=== PATIENT | male | born 1960 | race Caucasian/White ===

== ENCOUNTER → 2024-02-12 06:17 | Day surgery (SDC) | payer OTHER, SELFPAY | LOC: GI 06:17 | PROVIDERS: ATTENDING PHYSICIAN Specialist | DX: Z12.11 Encounter for screening for malignant neoplasm of colon (principal); R19.5 Other fecal abnormalities; K57.30 Diverticulosis of large intestine without perforation or abscess without bleeding; D12.3 Benign neoplasm of transverse colon; D12.5 Benign neoplasm of sigmoid colon; K63.5 Polyp of colon | CPT/HCPCS: 45385; 45381; 45380; 88305 ==

== ENCOUNTER 2024-06-16 20:05 | Observation (INO) | payer OTHER, SELFPAY ==
[2024-06-16 11:33] VITALS: BP 146/80
[2024-06-16 14:51] VITALS: BP 148/87
--- NOTE | 2024-06-16 14:51 | ED.GENMED ---
History of Present Illness
General
Chief Complaint: Visual Problem
Time Seen by Provider: 06/16/24 13:45
History of Present Illness
History of Present Illness:
Patient presents emergency department with diplopia. Symptoms started last night. Notes that he has had intermittent episodes of this over the past few weeks. However symptoms got much worse last night. Denies any headache or neck pain. Denies
any numbness weakness or tingling. Double vision is resolved when he covers one of his eyes.
Phy Exam
Physical Exam
Physical Exam:
GENERAL APPEARANCE: NAD, well developed/ well nourished
EYES lids/conjunctiva normal
EARS/NOSE/THROAT Mucous membranes moist, uvula midline without oral pharyngeal erythema, exudate or swelling
HEAD/NECK normocephalic atraumatic, neck is supple.
RESPIRATORY respiratory effort normal, speaks in full sentences, no accessory muscle use. Lungs clear to auscultation without rhonchi, wheezes, rales
CARDIAC Regular rate and rhythm, no edema.
ABDOMINAL Soft, ND/NT. No pulsatile masses on exam, rebound tenderness, Blount sign or pain over Mcburney's point.
MUSCLES/EXTREMITIES No abnormal range of motion, no swelling.
SKIN Warm, pink and dry. No rashes
NEUROLOGICAL Speech is clear and appropriate. Extraocular muscles are intact however there is disconjugate gaze and eyes are not moving and coordination. Mild right ptosis which patient states is chronic. Cranial nerves II through XII otherwise
intact. Normal level of consciousness. 5/5 strength in all extremities. Sensation intact to light touch throughout. No ataxia or dysmetria
PSYCH Normal mood and affect. Judgement/competence is appropriate
Course
Orders/Labs/Results
Orders:
Orders
06/16/24 11:41
CT Head W/o Iv Contrast Urgent
Comment:
Reason For Exam: visual changes since last night
06/16/24 14:38
Electrocardiogram (*1) Stat
Reason for Study: Other
Other Reason for Exam: neuro symptoms
CT Head & Neck Angio W/wo IV Urgent
Comment:
Reason For Exam: binocular diplopia
Aspirin Chewable [Low Strength Aspirin] 324 mg PO NOW STA
06/16/24 14:39
Nicotine [Nicoderm Transdermal] 21 mg TRANSDERM DAILY ONE
06/16/24 14:45
Complete Blood Count/With Diff Urgent
Comprehensive Metabolic Panel Urgent
Erythrocyte Sed Rate Urgent
06/16/24 19:50
Admit/Transfer Patient As Directed
Co-Sign Provider:
Level of Care: Observation services
Assign to:: Telemetry
Physician / Group: kevin
Diagnosis: cranial gallo palsy
Reason for Telemetry: Arrhythmia
Date to Stop Telemetry: 06/19/24
Time to Stop Telemetry: 11:00
Code Status As Directed
Resuscitation Status: Full Code
PRN Pain Medication Management As Directed
May give lesser potent ordered pain med per pt: Yes
preference::
Protocol:: Medication orders for pain may be administered in a
manner that supports deferring to patient preference
when the pt is:
- Requesting an ordered lesser potent pain medication.
Least to most potent pain medications are defined
as: acetaminophen < NSAID < tramadol < opioids
(morphine, oxycodone, hydromorphone).
- Requesting a lesser dose of the same medication IF
ORDERED.
- Requesting a less intrusive route of administration
if both routes are prescribed by the provider (PO <
IV).
06/19/24 11:00
DC Protocol for Telemetry ONCE
06/16/24 14:45
06/16/24 14:45
Vital Signs
Initial and Last Documented VS:
Initial Vital Signs
Temp Pulse Resp BP Pulse Ox
98.2 F 74 16 146/80 96
06/16/24 11:33 06/16/24 11:33 06/16/24 11:33 06/16/24 11:33 06/16/24 11:33
Last Documented Vital Signs
Temp Pulse Resp BP Pulse Ox
98.2 F 74 18 155/84 99
06/16/24 11:33 06/16/24 19:34 06/16/24 19:34 06/16/24 19:34 06/16/24 19:34
*Critical Care Note
Total Time (30-74mins, 75-104mins- exclusive of procedures): Not Applicable
ED Attending Note
ED Attending Note
ED Attending Note:
Patient with binocular diplopia. His extraocular movements appear to be intact and if this peers to be more complex motility disorder with his eyes. Will CTA head and plan for admission to rule out CVA or other [employer] causes
-
Portions of this chart may have been created with voice recognition software.� Occasional wrong word or��sound alike� substitutions may have occurred due to the inherent limitations of voice recognition software.
Discharge Plan
Departure
Patient Disposition: Admit
Date of Disposition: 06/16/24
Time of Disposition: 19:30
Presentation/result/management discussed w/ accepting MD/DO: Hospitalist
Discharge Problem:
Binocular vision disorder with diplopia
Interventions
Interventions:
*Risk Screen - Suicide Last Done: 06/16/24 11:33
*General Assessment Last Done: 06/16/24 11:33
*Neglect/Abuse Screening Last Done: 06/16/24 11:33
ED- Fall Risk Assessment Last Done: 06/16/24 18:18
*ED COVID-19 Vaccine History Last Done: 06/16/24 11:33
ED- Neurological Assessment Last Done: 06/16/24 18:18
ED-EENT Assessment Last Done: 06/16/24 18:18
ED Swallowing Screen Last Done: 06/16/24 18:18
[2024-06-16] MEDS: LOW STRENGTH ASPIRIN 324 MG PO (14:59)
[2024-06-16] MEDS: NICODERM TRANSDERMAL 21 MG TRANSDERM (14:59)
[2024-06-16 15:13] LABS: % Basophils 0.7 % (0-2); % Eosinophils 2.2 % (0-6); % Immature Granulocytes 0.2 % (0-0.5); % Lymphocytes 32.8 % (20.5-51.1); % Monocytes 6.8 % (1.7-9.3); % Neutrophils 57.3 % (42.2-75.2); Absolute Basophils 0.1 10^3/uL (0-0.2); Absolute Eosinophils 0.2 10^3/uL (0-0.7); Absolute Lymphocytes 2.7 10^3/uL (1.2-3.4); Absolute Monocytes 0.6 10^3/uL (0.1-0.6); Absolute Neutrophils 4.7 10^3/uL (1.4-6.5); Hematocrit 46.7 % (39.0-52.0); Hemoglobin 15.8 g/dL (13.0-18.0); Mean Corp Hgb Conc. 33.8 g/dL (33.0-37.0); Mean Corpuscular Hgb 30.3 pg (27.0-31.0); Mean Corpuscular Volume 89.5 fL (80.0-94.0); Mean Platelet Volume 10.1 fL (7.4-10.4); Nucleated Red Blood Cells % 0 % (-); Platelet Count 246 10^3/uL (130-400); Red Blood Cell Count 5.22 10^6/uL (4.70-6.10); Red Cell Dist. Width 13.2 % (11.5-14.5); White Blood Cell Count 8.1 10^3/uL (4.8-10.8)
[2024-06-16 15:27] LABS: ALT (SGPT) 26 U/L (0-50); AST (SGOT) 22 U/L (17-59); Albumin 4.2 g/dl (3.5-5.0); Alkaline Phosphatase 89 U/L (38-126); Blood Urea Nitrogen 13 mg/dl (9-20); Carbon Dioxide 30 mmol/L (22-30); Chloride 102 mmol/L (98-107); Glucose 86 mg/dl (70-99); Potassium 4.4 mmol/L (3.5-5.1); Sodium 139 mmol/L (135-145); Total Bilirubin 0.3 mg/dl (0.2-1.3); Total Protein 6.9 g/dl (6.3-8.2); eGFR > 60.00
[2024-06-16 15:37] LABS: Erythrocyte Sed Rate 9 mm/hour (0-20)
[2024-06-16 19:34] VITALS: BP 155/84
--- NOTE | 2024-06-16 19:53 | HPS.HSE ---
Family Physician
-
Family Physician: NOT KNOW UNKNOWN - PT DOES
Chief Complaint
-
double vision
History of Present Illness
64-year-old male past medical history of tobacco use, skull fracture in 2012, hyperlipidemia, bullous pemphigoid, cough variant asthma, presenting with double vision. Symptoms are last night. Patient has had intermittent episodes of this over the
past few weeks was much worse last night. Patient denies headache or neck pain. Denies numbness or weakness or tingling. Double vision is resolved when he covers one of his eyes. Denies headache, eye pain, numbness or tingling, focal weakness.
He is having some balance dysfunction due to double vision.
He smokes half pack of cigarettes per day. Denies alcohol use.
His mother had TIAs.
Medical History
Past Medical History
Past Medical History: Reports Other (tobacco use, skull fracture in 2012, hyperlipidemia, bullous pemphigoid, cough variant asthma,)
Past Surgical History: Reports Other (foot surgery)
Social History
Tobacco: Non-smoker
Alcohol: None
Drug: None
Family History
Family History: Not pertinent
Allergies / Home Medications
Allergies reflects when Allergies were last updated in [facility].
Home Medications with original date entered in [facility]
Allergy/Medication List:
Allergies
Allergy/AdvReac Type Severity Reaction Status Date / Time
'antibiotics' Allergy Unknown Uncoded 06/16/24 11:38
Home Medications
No Meds [No Current Medications] 06/16/24
Review of Systems
-
History Source: Patient
A 12 point ROS was completed and negative except as noted: Yes
Constitutional: Reports No Symptoms
EENT: Reports See HPI
Respiratory: Reports No Symptoms
Cardiac: Reports No Symptoms
Abdomen/GI: Reports No Symptoms
: Reports No Symptoms
Musculoskeletal: Reports No Symptoms
Skin: Reports No Symptoms
Neurological: Reports No Symptoms
Endocrine: Reports No Symptoms
Hematologic/Lymphatic: Reports No Symptoms
Psych: Reports No Symptoms
Physical Exam
Vital Signs
Vital Signs
Temp Pulse Resp BP Pulse Ox
98.2 F 74 18 155/84 99
06/16/24 11:33 06/16/24 19:34 06/16/24 19:34 06/16/24 19:34 06/16/24 19:34
Physical Exam
General: Well Developed, Well Nourished and No Apparent Distress
HEENT: NormoCephalic, Moist mucous membranes and Atraumatic
Respiratory: Clear
Cardiac: S1/S2 and Regular Rhythm; No Murmur or Rub
GI: Soft, Non Tender, Non Distended and Normal Bowel Sounds; No Organomegaly
Rectal: Deferred by Provider
Musculoskeletal: No Clubbing, No Cyanosis and No Edema
Skin: No Rash
Neuro: Nonfocal/grossly intact and Other (laterally deviated left eye )
Laboratory Results
-
06/16/24 14:45
06/16/24 14:45
Laboratory Results
Total Bilirubin 0.3 mg/dl (0.2-1.3) 06/16/24 14:45
AST 22 U/L (17-59) 06/16/24 14:45
ALT 26 U/L (0-50) 06/16/24 14:45
Alkaline Phosphatase 89 U/L (38-126) 06/16/24 14:45
Data Reviewed
-
Lab Data: Labs Reviewed by me
Old Records: Reviewed
Impression/Plan
-
IMPRESSION:
PLAN:
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
-Difficult to examine, but seems like patient has lateral deviation of left eye
-CT head shows no acute intracranial abnormality
-CTA head and neck shows no evidence of intracranial aneurysm, no significant atherosclerotic disease,
-Check MRI brain
-Eyepatch
-Neurology consulted
-Outpatient follow-up with ophthalmology
History of tobacco
Skull fracture in 2012
Bullous pemphigoid
Cough variant asthma
-Takes Trelegy
Smoker
Hyperlipidemia
Full code
DVT prophylaxis�SCDs
Regular diet
[2024-06-16 22:28] VITALS: BMI 29.3
[2024-06-16] MEDS: FLUSH (NSS) 1 FLUSH IV (22:28)
--- NOTE | 2024-06-16 23:00 | PTCARENOTE ---
Pt arrived on unit from ED via stretcher. Pt ambulated to bed in room. A&Ox3. Pt placed on tele monitor #[id number] in NSR. Pt oriented to unit. Call light within reach. Care ongoing.
[2024-06-16 23:02] VITALS: BMI 29.2
[2024-06-16 23:14] VITALS: BP 129/72
[2024-06-17 03:00] VITALS: BP 128/65
[2024-06-17 06:54] LABS: % Basophils 0.7 % (0-2); % Immature Granulocytes 0.3 % (0-0.5); % Lymphocytes 28.6 % (20.5-51.1); % Monocytes 5.6 % (1.7-9.3); % Neutrophils 62.8 % (42.2-75.2); Absolute Basophils 0.1 10^3/uL (0-0.2); Absolute Eosinophils 0.2 10^3/uL (0-0.7); Absolute Lymphocytes 2.6 10^3/uL (1.2-3.4); Absolute Monocytes 0.5 10^3/uL (0.1-0.6); Absolute Neutrophils 5.8 10^3/uL (1.4-6.5); Hemoglobin 16.8 g/dL (13.0-18.0); Mean Corpuscular Hgb 30.9 pg (27.0-31.0); Mean Corpuscular Volume 88.4 fL (80.0-94.0); Mean Platelet Volume 10.1 fL (7.4-10.4); Nucleated Red Blood Cells % 0 % (-); Platelet Count 240 10^3/uL (130-400); Red Blood Cell Count 5.43 10^6/uL (4.70-6.10); Red Cell Dist. Width 13.3 % (11.5-14.5); White Blood Cell Count 9.2 10^3/uL (4.8-10.8)
--- NOTE | 2024-06-17 07:02 | W.PN.HOSP.TC ---
Today's Communication/Plan
-
Discharge today
Assessment / Plan
Assessment / Plan
Physical Exam
General: Not in acute distress
HEENT: Normocephalic
Respiratory: Clear to Auscultation Bilaterally
Cardiac: S1/S2 and Regular Rhythm
GI: Soft, Non Tender, Non Distended and Normal Bowel Sounds
Musculoskeletal: No Cyanosis and No Edema
Skin: Warm. Dry.
Neuro: AAOx3. PERRL and EOMI. Remaining cranial nerves intact except binocular diplopia bilaterally and lateral visual field limitations. Strength and sensation grossly intact bilaterally in the upper and lower extremities.
Assessment/Plan
64-year-old male past medical history of tobacco use, skull fracture in 2012, hyperlipidemia, bullous pemphigoid, cough variant asthma, presented with double vision since 06/15/24. He denied numbness, weakness or tingling. Double vision resolves
when he covers one of his eyes. Denies headache, eye pain, numbness or tingling, focal weakness. He is having some balance dysfunction due to double vision. He smokes half pack of cigarettes per day. Denies alcohol use. His mother had TIAs.
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
-I discussed case with on-call neurosurgeon (Dr. Shannon) who said inpatient neurosurgery consult is not needed, and based on patient's symptoms and MRI findings, he can be discharged and be seen outpatient by
neurosurgery
-I also discussed case with pulp cooker Dr. Campuzano who said patient can follow-up outpatient with her
-FSH, LH, Prolactin and TSH are all normal
-Eyepatch
-Neurology consulted
History of tobacco
Skull fracture in 2012
Bullous pemphigoid
Cough variant asthma
-Takes Trelegy
Smoker
Hyperlipidemia
Full code
DVT prophylaxis�SCDs
Regular diet
I spoke extensively with patient and his today, they are both in agreement with patient being discharged from the hospital and doing outpatient follow-up.
More than 30 minutes spent in discharge including
Final examination of the patient
Summarizing hospital stay
Instructions for continuing care to all relevant caregivers
Preparation of discharge records, prescriptions, and referral forms
Total time spent (in minutes): 40
Anticipated Discharge: Today
Subjective/Interval History
-
Date of Service: June 17, 2024
Patient was seen and examined. He reported double vision is better with the eye patch, but it is still there when he takes off the eye patch.
Objective Data
-
Labs:
Laboratory Results
06/17/24
06:30
WBC 9.2
Hgb 16.8
Hct 48.0
Plt Count 240
Sodium Pending
Potassium Pending
Chloride Pending
Carbon Dioxide Pending
BUN Pending
Creatinine Pending
Glucose Pending
Calcium Pending
Total Bilirubin Pending
AST Pending
ALT Pending
Alkaline Phosphatase Pending
Vital Signs:
Vital Signs
Temp Pulse Resp BP Pulse Ox
99.1 F 67 16 128/65 96
06/17/24 03:00 06/17/24 03:00 06/17/24 03:00 06/17/24 03:00 06/17/24 03:00
I&O
06/16/24 06/17/24 06/18/24
06:59 06:59 06:59
Intake Total 600 / 600
Balance 600 / 600
[2024-06-17 07:14] LABS: ALT (SGPT) 28 U/L (0-50); AST (SGOT) 24 U/L (17-59); Albumin 4.3 g/dl (3.5-5.0); Alkaline Phosphatase 103 U/L (38-126); Blood Urea Nitrogen 16 mg/dl (9-20); Calcium 9.8 mg/dl (8.4-10.2); Carbon Dioxide 28 mmol/L (22-30); Chloride 103 mmol/L (98-107); Estimated Creatinine Clearance 79 ml/min; Glucose 104 mg/dl (70-99); Potassium 4.6 mmol/L (3.5-5.1); Sodium 139 mmol/L (135-145); Total Bilirubin 0.4 mg/dl (0.2-1.3); Total Protein 7.2 g/dl (6.3-8.2); eGFR > 60.00
[2024-06-17 07:40] VITALS: BP 127/74
--- NOTE | 2024-06-17 11:01 | CON.NEURO ---
Consultation
Order
Date of Consultation: 06/17/24
Requesting Provider: Rafael Mckenna MD
Reason for Consult: Diplopia
Neurology Consultation Note.
HPI: This is a 64-year-old man who presented to [facility] on 06/16/2024 with visual changes. According to the patient he developed intermittent painless binocular horizontal diplopia around 1 and half months ago. No reports of eye
trauma, headaches, eye trauma, fever, motor, sensory changes.
ER VS: 146/80, 74, afebrile.
EKG: NSR, QTc Int : 388 ms
PDMP:none
Labs: Glucose�104, normal platelets, hematocrit
Brain MRI w/wo vandana(06/17/2024)� 1.0 x 0.8 x 0.6 cm hypoenhancing focus within the left aspect of the pituitary with associated mild rightward shift of the pituitary stalk which is favored to represent a pituitary macroadenoma. This appears to abut
the left cavernous ICA
CTA head/neck-no hemodynamically significant stenosis
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
PSH: Right foot ORIF
SH: Active smoker
FH: Mother�TIAs
All:PNC
ROS: Constitutional: Negative. Negative for chills, fever and unexpected weight change.
HENT: Negative for ear pain, hearing loss, tinnitus and trouble swallowing.
Eyes: Positive for diplopia
Respiratory: Negative for cough, choking and shortness of breath.
Cardiovascular: Negative for chest pain, palpitations and leg swelling.
Gastrointestinal: Negative for abdominal pain and vomiting.
Endocrine: Negative. Negative for cold intolerance.
Genitourinary: Negative for dysuria, flank pain and urgency.
Musculoskeletal: Negative for back pain, gait problem, neck pain and neck stiffness.
Skin: Negative for rash.
Allergic/Immunologic: Negative. Negative for immunocompromised state.
Neurological:positive for diplopia
Psychiatric/Behavioral: Negative for behavioral problems, confusion and hallucinations.
General: Well developed. In no acute distress.
Cardio: Regular rate and rhythm without murmur. Extremities are without cyanosis or edema.
Neuro:
Mental Status: Alert, oriented to person, place, month, year. Date was not correct but close. Normal attention and recall. Good fund of knowledge. Follows complex requests across the midline. Comprehension, naming, and repetition intact.
Cranial Nerves: Pupils are equally round and reactive to light. EOMs full. Visual pedraza full to confrontation. Binocular diplopia at distance bilaterally. Lateral visual field limitations. V1-V3 intact to light touch and pinprick bilaterally,
symmetric. Face symmetric. Normal hearing AU. The palate elevated well. SCMs and traps 5/5. Tongue midline. No dysarthria.
Motor: Normal bulk and tone. No pronator or arm drift. Strength 5/5 throughout. No clonus.
Reflexes: 2+ throughout the upper extremities and knees. Plantar responses flexor bilaterally.
Sensory: Normal vibration and JPS.
Coordination: No dysmetria or tremor.
Gait: Normal stance, stride
Assessment and Plan:
I. 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
II. Nicotine addiction
III. Dyslipidemia
-Continue Telemetry monitoring
-Please check prolactin, TFTs, LS/FSh
-smoking cessation
-Brain MRI (pituitary protocol)
-Neurosurgery consult
-DVT prophylaxis.
I personally reviewed all radiology and labs along with past medical records pertinent to current medical problems. Total time spent in patient care is 60 minutes.
Thank you for allowing us to participate in the care of this patient. We will continue to follow. Please do not hesitate to contact us with any questions or concerns.
Subjective/Objective
Subjective Data
Date of Service: June 17, 2024
Objective Data
Vital Signs
Temp Pulse Resp BP Pulse Ox
36.3 C 66 17 127/74 97
06/17/24 07:40 06/17/24 07:40 06/17/24 07:40 06/17/24 07:40 06/17/24 07:40
Lab Results
06/17/24 06:30
06/17/24 06:30
Sodium 139 mmol/L (135-145) 06/17/24 06:30
Potassium 4.6 mmol/L (3.5-5.1) 06/17/24 06:30
BUN 16 mg/dl (9-20) 06/17/24 06:30
Glucose 104 mg/dl (70-99) H 06/17/24 06:30
Calcium 9.8 mg/dl (8.4-10.2) 06/17/24 06:30
Patient Allergies
'antibiotics' Allergy (Uncoded 06/16/24 11:38)
Unknown
Medications
-
Active Medications
Generic Name Dose Route Start Last Admin
Trade Name Ting PHILLIPSN Reason Stop Dose Admin
Sodium Chloride 0 flush 06/16/24 22:00 06/16/24 22:28
Sodium Chloride 0.9% (Flush) Syringe IV 07/14/24 21:59 1 flush
PER PROTOCOL BONI Administration
Home Medications
�Medication �Instructions �Recorded
No Meds [No Current Medications] 06/16/24
Vital Signs and Labs
-
Vital Signs and Labs:
Vital Signs
Temp Pulse Resp BP Pulse Ox
36.6 C 64 16 141/77 98
06/17/24 11:07 06/17/24 11:07 06/17/24 11:07 06/17/24 11:07 06/17/24 11:07
Lab Results
06/17/24 06:30
06/17/24 06:30
Sodium 139 mmol/L (135-145) 06/17/24 06:30
Potassium 4.6 mmol/L (3.5-5.1) 06/17/24 06:30
BUN 16 mg/dl (9-20) 06/17/24 06:30
Glucose 104 mg/dl (70-99) H 06/17/24 06:30
Calcium 9.8 mg/dl (8.4-10.2) 06/17/24 06:30
Medications
-
Medications:
Generic Name Dose Route Start Last Admin
Trade Name Freq PRN Reason Stop Dose Admin
Atorvastatin Calcium 40 mg 06/17/24 18:00
Atorvastatin (Lipitor) 20 Mg Tablet PO 07/15/24 17:59
QPM BONI
Clopidogrel Bisulfate 75 mg 06/17/24 12:00
Clopidogrel 75 Mg Tablet PO 07/07/24 08:01
DAILY BONI
Sodium Chloride 0 flush 06/16/24 22:00 06/16/24 22:28
Sodium Chloride 0.9% (Flush) Syringe IV 07/14/24 21:59 1 flush
PER PROTOCOL BONI Administration
Home Medications
-
Home Medications
No Meds [No Current Medications] 06/16/24
[2024-06-17 11:07] VITALS: BP 141/77
[2024-06-17 11:41] LABS: HDL Cholesterol 42 mg/dl; LDL Cholesterol, Calculated 160 mg/dl; Total Cholesterol 245 mg/dl (50-199); Triglyceride 215 mg/dl (10-149); Very Low Density Lipoprotein 43 mg/dl (0-30)
[2024-06-17] MEDS: PLAVIX 75 MG PO (11:41)
[2024-06-17 13:08] LABS: Glycohemoglobin (HgbA1c) 5.9 % (4.0-5.6)
[2024-06-17 14:44] LABS: TSH Reflex To Free T4 1.86 uIU/ml (0.47-4.68)
[2024-06-17 15:08] LABS: FSH 7.6 mIU/ml (1.55-9.74); Luteinizing Hormone 3.91 mIU/ml (1.24-7.80); Prolactin 16.9 ng/ml (3.7-17.9)
[2024-06-17 15:37] VITALS: BP 129/78
[2024-06-17] MEDS: MESTINON 60 MG PO (16:39)
== END 2024-06-17 17:50 | disposition home or self-care (01) ==
LOC: 3 WEST ACU 20:05
PROVIDERS: ADMITTING PHYSICIAN Hospitalist; ATTENDING PHYSICIAN Hospitalist; CONSULT PHYSICIAN Psychiatry & Neurology Neurology; EMERGENCY PHYSICIAN Emergency Medicine
DX: D35.2 Benign neoplasm of pituitary gland (principal); H53.2 Diplopia; R29.818 Other symptoms and signs involving the nervous system; F17.210 Nicotine dependence, cigarettes, uncomplicated; E78.5 Hyperlipidemia, unspecified; L12.0 Bullous pemphigoid; J43.2 Centrilobular emphysema; J45.991 Cough variant asthma; Z88.1 Allergy status to other antibiotic agents; Z87.820 Personal history of traumatic brain injury
CPT/HCPCS: 70450; 70496; 70498; 70553; 80053; 80061; 83001; 83002; 83036; 84146; 84443; 85025; 85652; 93005; 99285; 99406; A9575; G0378; Q9967

== ENCOUNTER → 2025-01-24 10:14 | Outpatient (REF) | payer OTHER, SELFPAY | LOC: PAVMRI 10:14 | PROVIDERS: ATTENDING PHYSICIAN Nurse Practitioner Family; FAMILY PHYSICIAN Internal Medicine; REFERRING PHYSICIAN Neurological Surgery | DX: D35.2 Benign neoplasm of pituitary gland (principal) | CPT/HCPCS: 70553; A9575 ==